=== PATIENT | male | born 1995 | race Caucasian/White ===

== ENCOUNTER 2019-04-29 02:41 | Emergency (ER) | payer OTHER, SELFPAY | END 2019-04-29 03:05 | disposition home or self-care (01) | LOC: ERS 02:41 | DX: S91.332A Puncture wound without foreign body, left foot, initial encounter (principal); F41.9 Anxiety disorder, unspecified; F32.9 Major depressive disorder, single episode, unspecified; W26.8XXA Contact with other sharp object(s), not elsewhere classified, initial encounter | CPT/HCPCS: 99283 ==